=== PATIENT | female | born 1965 | race African-American/Black ===

== ENCOUNTER 2016-08-31 06:31 | Emergency (ER) | payer MEDICAID ==
[~2016-08-31] VITALS: Ht 172.7 cm; Wt 77.0 kg
[2016-08-31 06:48] VITALS: BP 159/94
[2016-08-31] MEDS ORDERED: PREDNISONE 20MG TABLET PO ONE (07:15)
[2016-08-31] MEDS ORDERED: HYDROXYZINE 25MG TABLET PO ONE (07:15)
[2016-08-31] MEDS ORDERED: ONDANSETRON 4MG ODT PO ONE (07:15)
[2016-08-31] MEDS ORDERED: FAMOTIDINE 20MG TABLET PO ONE (07:15)
[2016-08-31 07:30] LABS: BASOPHILS % 2.1 % (0.0-2.0); EOSINOPHILS % 5.8 % (0.0-5.0); HEMATOCRIT. 42.3 % (36.0-48.0); HEMOGLOBIN. 14.2 g/dL (12.0-16.0); LYMPHOCYTES % 37.6 % (20.0-50.0); MEAN CORPUSCULAR HEMOGLOBIN 29.6 pg (28.0-32.0); MEAN CORPUSCULAR HGB CONC 33.6 g/dL (31.0-37.0); MEAN CORPUSCULAR VOLUME 88.1 fL (81.0-99.0); MEAN PLATELET VOLUME 8.9 fl (7.4-10.4); MONOCYTES % 7.1 % (2.0-8.0); NEUTROPHILS % 47.4 % (40.0-76.0); PLATELET 241 x1000/uL (130-400); RED BLOOD CELL COUNT 4.81 mill/uL (4.2-5.4); RED CELL DISTRIBUTION WIDTH 13.7 % (11.6-14.6); WHITE BLOOD COUNT 7.9 x1000/uL (4.5-11.0)
[2016-08-31 07:41] LABS: ANION GAP 15; CALCIUM 8.7 mg/dL (8.5-10.1); CARBON DIOXIDE 27 mEq/L (21-32); CHLORIDE 102 mEq/L (98-107); INDEX HEMOLYSI 1 (1-3); INDEX ICTERIC 1 (1-4); INDEX LIPEMIC 1 (1-3); UREA NITROGEN BLOOD 12 mg/dL (7-21); eGFR > 60 mL/min (>60)
[2016-08-31 07:47] LABS: INR 1.1; PROTHROMBIN TIME 11.4 sec
[2016-08-31] MEDS ORDERED: INSULIN REGULAR (HUMULIN R) 300UNITS/3ML SUBCUT SCH (08:15)
== END 2016-08-31 09:01 | disposition home or self-care (01) ==
LOC: ER 06:57
DX: L20.9 Atopic dermatitis, unspecified (principal); I10 Essential (primary) hypertension; E11.9 Type 2 diabetes mellitus without complications; Z88.6 Allergy status to analgesic agent
CPT/HCPCS: 36415; 80048; 85025; 85610; 96372; 99284; J1815; J7512; Q0162

== ENCOUNTER 2016-10-29 21:03 | Emergency (ER) | payer MEDICAID ==
[~2016-10-29] VITALS: Ht 157.5 cm; Wt 80.0 kg
[2016-10-29] MEDS ORDERED: AMLO10TA80 PO (21:21)
[2016-10-29] MEDS ORDERED: GLIP10TA10 PO (21:21)
[2016-10-29] MEDS ORDERED: METF500T4 PO (21:21)
[2016-10-29] MEDS ORDERED: [UNRECOGNIZED DRUG - CODE] PO (21:21)
[2016-10-29] MEDS ORDERED: LISI-186 PO (21:21)
[2016-10-30] MEDS: SODIUM CHLORIDE 0.9% 1,000 ML IV ONE (01:04)
[2016-10-30] MEDS: KETOROLAC 30MG/ML VIAL IV STA (01:12)
[2016-10-30] MEDS: ONDANSETRON HCL 4MG/2ML VIAL IV STA (01:12)
[2016-10-30 01:16] LABS: CLARITY URINE CLEAR (CLEAR); COLOR URINE YELLOW (YELLOW); GLUCOSE URINE TRACE (NEGATIVE); KETONES URINE NEGATIVE (NEGATIVE); LEUKOCYTE ESTERASE URINE NEGATIVE (NEGATIVE); NITRITE URINE NEGATIVE (NEGATIVE); OCCULT BLOOD URINE NEGATIVE (NEGATIVE); PH URINE 6.5 (4.5-8.0); PROTEIN URINE NEGATIVE (NEGATIVE); SPECIFIC GRAVITY URINE 1.019 (1.005-1.030); UROBILINOGEN URINE 0.2 E.U./dL (0.2-1.0)
[2016-10-30 01:30] LABS: BACTERIA URINE TRACE; RBC URINE 0-2 /hpf (0-2); SQUAMOUS EPITHELIAL CELL URINE FEW /lpf (RARE/1+); WBC URINE 0-2 /hpf (0-2)
[2016-10-30 01:37] LABS: BASOPHILS % 0.7 % (0.0-2.0); EOSINOPHILS % 1.3 % (0.0-5.0); HEMATOCRIT. 40.1 % (36.0-48.0); HEMOGLOBIN. 13.7 g/dL (12.0-16.0); LYMPHOCYTES % 37.2 % (20.0-50.0); MEAN CORPUSCULAR HEMOGLOBIN 29.1 pg (28.0-32.0); MEAN CORPUSCULAR HGB CONC 34.3 g/dL (31.0-37.0); MEAN CORPUSCULAR VOLUME 84.9 fL (81.0-99.0); MEAN PLATELET VOLUME 9.1 fl (7.4-10.4); MONOCYTES % 10.2 % (2.0-8.0); NEUTROPHILS % 50.6 % (40.0-76.0); PLATELET 247 x1000/uL (130-400); RED BLOOD CELL COUNT 4.73 mill/uL (4.2-5.4); RED CELL DISTRIBUTION WIDTH 13.8 % (11.6-14.6); WHITE BLOOD COUNT 7.2 x1000/uL (4.5-11.0)
[2016-10-30 01:40] LABS: CHLORIDE 103 mEq/L (98-107); INDEX HEMOLYSI 1 (1-3); INDEX ICTERIC 1 (1-4); INDEX LIPEMIC 1 (1-3)
[2016-10-30 01:52] LABS: ALANINE AMINOTRANSFERASE 29 IU/L (13-61); ALBUMIN 3.4 g/dL (3.4-5.0); ANION GAP 12; CALCIUM 8.4 mg/dL (8.5-10.1); CARBON DIOXIDE 26 mEq/L (21-32); LIPASE 450 IU/L (73-393); UREA NITROGEN BLOOD 8 mg/dL (7-21); eGFR > 60 mL/min (>60)
[2016-10-30 03:47] VITALS: BP 158/111
== END 2016-10-30 04:14 | disposition home or self-care (01) ==
LOC: ER 21:15
DX: R10.9 Unspecified abdominal pain (principal); R30.0 Dysuria; E11.9 Type 2 diabetes mellitus without complications; I10 Essential (primary) hypertension; Z88.6 Allergy status to analgesic agent; R11.0 Nausea
CPT/HCPCS: 36415; 71010; 74176; 80053; 81001; 81025; 83690; 85025; 93005; 96361; 96374; 96375; 99285; J1885; J2405; J7030; Z7610

== ENCOUNTER 2017-02-06 16:04 | Emergency (ER) | payer MEDICAID, OTHER ==
[~2017-02-06] VITALS: Ht 160 cm; Wt 79.0 kg
[~2017-02-06 16:04] MED LIST: GLIP10TA10 PO; HYDR10SY11 PO; LISI-186 PO; LISI40TA4 PO; METF500T4 PO; METO50TA5 PO; METR250T4 PO
[2017-02-06] MEDS ORDERED: SODIUM CHLORIDE 0.9% 1,000 ML IV ONE (19:05)
[2017-02-06] MEDS ORDERED: ONDANSETRON HCL 4MG/2ML VIAL IV STA (19:05)
[2017-02-06] MEDS ORDERED: KETOROLAC 30MG/ML VIAL IV STA (19:05)
[2017-02-06 19:55] LABS: HCG SCREEN NEGATIVE
[2017-02-06] MEDS ORDERED: ONDANSETRON HCL 4MG/2ML VIAL IV ONE (21:00)
[2017-02-06 22:21] VITALS: BP 157/81
== END 2017-02-06 22:23 | disposition home or self-care (01) ==
LOC: ER 16:04
DX: R51 Headache (principal); I10 Essential (primary) hypertension; E11.9 Type 2 diabetes mellitus without complications; R11.2 Nausea with vomiting, unspecified; M79.89 Other specified soft tissue disorders; Z88.6 Allergy status to analgesic agent
CPT/HCPCS: 84703; 96361; 96374; 96375; 99284; J1885; J2405; J7030; Z7610